=== PATIENT | male | born 1940 | race Caucasian/White ===

== ENCOUNTER 2022-05-25 11:52 | Emergency (ER) | payer MEDICARE ==
[~2022-05-25] VITALS: Ht 180.3 cm; Wt 90.7 kg
[2022-05-25] MEDS ORDERED: LACTATED RINGERS 1000ML 1,000 ML IV ONE (12:30)
[2022-05-25 12:39] LABS: BASOPHILS % (AUTO) 0.2 % (0.0-5.0); EOSINOPHILS % (AUTO) 0.7 % (0.0-8.0); HEMATOCRIT 36.1 % (42-54); LYMPHOCYTES % (AUTO) 46.2 % (21.0-51.0); MEAN CORPUSCULAR HEMOGLOBIN 28.3 pg (27.0-33.0); MEAN CORPUSCULAR HGB CONC 32.1 g/dL (32.0-36.0); MONOCYTES % (AUTO) 8.8 % (3.0-13.0); NEUTROPHILS % (AUTO) 43.7 % (40.0-77.0); PLATELET COUNT (AUTO) 169 K/uL (130-400); RED CELL DISTRIBUTION WIDTH 14.2 % (11.0-15.5); WHITE BLOOD COUNT (AUTO) 16.3 K/uL (4.8-10.8)
[2022-05-25 12:44] LABS: INR 0.95 (0.85-1.15); PROTHROMBIN TIME 10.4 SEC (9.6-11.6)
[2022-05-25 12:45] LABS: CREATININE 1.3 mg/dL (0.5-1.5); POTASSIUM 3.2 mmol/L (3.5-5.1)
[2022-05-25 12:46] LABS: PARTIAL THROMBOPLASTIN TIME 24.9 SEC (26.3-35.5)
[2022-05-25 12:49] LABS: ALBUMIN 3.7 g/dL (3.5-5.0); TOTAL PROTEIN, SERUM 7.2 g/dL (6.0-8.3)
[2022-05-25 13:14] LABS: MAGNESIUM 1.9 mg/dL (1.80-2.40)
== END 2022-05-25 15:30 | disposition left against medical advice (07) ==
LOC: EDH 11:52
DX: R55 Syncope and collapse (principal); D72.829 Elevated white blood cell count, unspecified; E87.6 Hypokalemia; I10 Essential (primary) hypertension; E78.00 Pure hypercholesterolemia, unspecified; Z85.118 Personal history of other malignant neoplasm of bronchus and lung; Z85.841 Personal history of malignant neoplasm of brain; Z91.012 Allergy to eggs
CPT/HCPCS: 99285; 96360; 70450; 71045; 80061; 82550; 83735; 83874; 84484; 80053; 83880; 85025; 85378; 85610; 85730; 36415; 93005; J7120

== ENCOUNTER 2022-06-29 16:14 | Observation (INO) | payer MEDICARE ==
[~2022-06-29] VITALS: Ht 180.3 cm; Wt 90.7 kg
[2022-06-29 16:40] LABS: BASOPHILS % (AUTO) 0.2 % (0.0-5.0); EOSINOPHILS % (AUTO) 0.9 % (0.0-8.0); HEMATOCRIT 33.7 % (42-54); LYMPHOCYTES % (AUTO) 61.6 % (21.0-51.0); MEAN CORPUSCULAR HEMOGLOBIN 28.1 pg (27.0-33.0); MEAN CORPUSCULAR HGB CONC 31.8 g/dL (32.0-36.0); MEAN CORPUSCULAR VOLUME 88.5 fL (79-99); NEUTROPHILS % (AUTO) 29.9 % (40.0-77.0); PLATELET COUNT (AUTO) 111 K/uL (130-400); RED BLOOD CELL COUNT(AUTO) 3.81 MIL/uL (4.50-6.20); RED CELL DISTRIBUTION WIDTH 13.5 % (11.0-15.5); WHITE BLOOD COUNT (AUTO) 18.2 K/uL (4.8-10.8)
[2022-06-29 16:54] LABS: CREATININE 1.7 mg/dL (0.5-1.5); POTASSIUM 3.9 mmol/L (3.5-5.1)
[2022-06-29 17:01] LABS: ALBUMIN 3.2 g/dL (3.5-5.0); MAGNESIUM 1.8 mg/dL (1.80-2.40); TOTAL PROTEIN, SERUM 6.6 g/dL (6.0-8.3)
[2022-06-29 17:17] LABS: B-TYPE NATRIURETIC PEPTIDE 98 pg/mL (0-100)
[2022-06-29] MEDS ORDERED: PANTOPRAZOLE 40 MG/VIAL IVP STA (17:49)
[2022-06-29] MEDS ORDERED: LIDOCAINE HCL 2% VISCOUS 15 ML UDCUP PO ONE (19:00)
[2022-06-29] MEDS ORDERED: MAG/ALUM/SIMETH 30 ML UDCUP PO ONE (19:00)
[2022-06-29] MEDS: NITROGLYCERIN 0.4 MG SL TAB SL PRN ×2 (20:34→21:24)
[2022-06-29] MEDS ORDERED: DOCUSATE SODIUM 100 MG CAP PO PRN (21:30)
[2022-06-29] MEDS ORDERED: ALBUTEROL 0.083% 2.5 MG/3 ML INH IH PRN (21:30)
[2022-06-29] MEDS ORDERED: CLONIDINE HCL 0.1 MG TABLET PO PRN (21:30)
[2022-06-29] MEDS ORDERED: LACTULOSE 20 GM/30 ML UDCUP PO PRN (21:30)
[2022-06-29] MEDS ORDERED: ACETAMINOPHEN 325 MG TAB PO PRN (21:30)
[2022-06-29] MEDS ORDERED: HYDRALAZINE 20MG/ML VIAL IV PRN (21:30)
[2022-06-29] MEDS ORDERED: ONDANSETRON 4MG INJ IVP PRN (21:30)
[2022-06-29 21:55] LABS: ABG HCO3 23.9 mmol/L (21.0-28.0); ABG OXYGEN SATURATION 93.5 % (95.0-99.0); ABG PCO2 41 mmHg (35-48)
[2022-06-29] MEDS ORDERED: PROP60TA20 PO (21:58)
[2022-06-29] MEDS ORDERED: DOXA2TAB2 PO (21:58)
[2022-06-29] MEDS ORDERED: HYDR25TA PO (21:58)
[2022-06-29] MEDS ORDERED: METF-444 PO (21:58)
[2022-06-29] MEDS ORDERED: ATOR-2 PO (21:58)
[2022-06-29] MEDS ORDERED: LOSA100T58 PO (21:58)
[2022-06-29] MEDS ORDERED: ALLO100T PO (21:58)
[2022-06-29] MEDS ORDERED: MORPHINE 2 MG SYG IVP ONE (22:30)
[2022-06-30 02:32] VITALS: BP 159/65
[2022-06-30] MEDS ORDERED: DOXA4TAB3 PO (03:27)
[2022-06-30] MEDS ORDERED: ALLO100T PO (03:29)
[2022-06-30] MEDS ORDERED: [UNRECOGNIZED DRUG - OTHER] PO (03:33)
[2022-06-30 05:01] VITALS: BP 159/58
[2022-06-30 07:12] LABS: BASOPHILS % (AUTO) 0.2 % (0.0-5.0); EOSINOPHILS % (AUTO) 0.1 % (0.0-8.0); HEMATOCRIT 33.5 % (42-54); LYMPHOCYTES % (AUTO) 45.6 % (21.0-51.0); MEAN CORPUSCULAR HEMOGLOBIN 28.2 pg (27.0-33.0); MEAN CORPUSCULAR HGB CONC 32.8 g/dL (32.0-36.0); MEAN CORPUSCULAR VOLUME 85.9 fL (79-99); MONOCYTES % (AUTO) 6.9 % (3.0-13.0); NEUTROPHILS % (AUTO) 46.8 % (40.0-77.0); PLATELET COUNT (AUTO) 123 K/uL (130-400); RED CELL DISTRIBUTION WIDTH 13.4 % (11.0-15.5); WHITE BLOOD COUNT (AUTO) 18.6 K/uL (4.8-10.8)
[2022-06-30 07:33] LABS: CREATININE 1.5 mg/dL (0.5-1.5); MAGNESIUM 1.9 mg/dL (1.80-2.40); PHOSPHORUS 3.5 mg/dL (2.5-4.9); POTASSIUM 3.7 mmol/L (3.5-5.1); THYROID STIMULATING HORMONE 2.29 uIU/mL (0.36-3.74)
[2022-06-30 08:00] VITALS: BP 146/67
[2022-06-30] MEDS ORDERED: ENOXAPARIN SODIUM 40 MG/0.4 ML SYRINGE SQ SCH (09:00)
[2022-06-30 11:38] VITALS: BP 135/46
== END 2022-06-30 16:59 | disposition home or self-care (01) ==
LOC: EDH 16:14 → EDHIP 21:11 → 4CH 06-30 00:56
PROVIDERS: ADMIT Internal Medicine Critical Care Medicine; ATTEND Internal Medicine Critical Care Medicine
DX: R07.89 Other chest pain (principal); R06.00 Dyspnea, unspecified; R79.89 Other specified abnormal findings of blood chemistry; N17.9 Acute kidney failure, unspecified; I12.9 Hypertensive chronic kidney disease with stage 1 through stage 4 chronic kidney disease, or unspecified chronic kidney disease; E11.22 Type 2 diabetes mellitus with diabetic chronic kidney disease; N18.30 Chronic kidney disease, stage 3 unspecified; E78.5 Hyperlipidemia, unspecified; M10.9 Gout, unspecified; E78.00 Pure hypercholesterolemia, unspecified; C91.10 Chronic lymphocytic leukemia of B-cell type not having achieved remission; I44.0 Atrioventricular block, first degree; Z85.118 Personal history of other malignant neoplasm of bronchus and lung; Z85.841 Personal history of malignant neoplasm of brain; Z79.899 Other long term (current) drug therapy
CPT/HCPCS: 96374; 96375; 99285; 83735 ×2; 84484 ×4; 80053; 82803; 83880; 85025 ×2; 85378; 83605; 36415 ×2; 71045; 78582; 93005; 36600; 94664; 84145; 96372; 84443; 82550 ×2; 84100; 83874 ×2; 80048; 82948 ×2; G0378 ×18; C9113; A9540; A9558; J1650

== ENCOUNTER → 2022-07-15 | Outpatient (CLI) | payer MEDICARE ==
[~2022-07-15] MED LIST: ALLO100T PO; ATOR-2 PO; DOXA4TAB3 PO; HYDR25TA PO; LOSA100T58 PO; PROP60TA20 PO; [UNRECOGNIZED DRUG - OTHER] PO
== END | disposition home or self-care (01) ==
LOC: LAB 11:15
PROVIDERS: ATTEND Physician Assistant
DX: C34.12 Malignant neoplasm of upper lobe, left bronchus or lung (principal); R00.1 Bradycardia, unspecified; I44.0 Atrioventricular block, first degree
CPT/HCPCS: 93005

== ENCOUNTER → 2022-07-21 | Outpatient (CLI) | payer MEDICARE | END | disposition home or self-care (01) | LOC: LAB 09:13 | PROVIDERS: ATTEND Physician Assistant | DX: R00.1 Bradycardia, unspecified (principal); I48.91 Unspecified atrial fibrillation; C34.12 Malignant neoplasm of upper lobe, left bronchus or lung | CPT/HCPCS: 93005 ==

== ENCOUNTER → 2022-08-05 | Outpatient (CLI) | payer MEDICARE | END | disposition home or self-care (01) | LOC: LAB 09:14 | PROVIDERS: ATTEND Physician Assistant | DX: R00.1 Bradycardia, unspecified (principal); I10 Essential (primary) hypertension; C34.12 Malignant neoplasm of upper lobe, left bronchus or lung | CPT/HCPCS: 93005 ==

== ENCOUNTER → 2022-08-26 | Outpatient (CLI) | payer MEDICARE | END | disposition home or self-care (01) | LOC: LAB 10:19 | PROVIDERS: ATTEND Physician Assistant | DX: I44.0 Atrioventricular block, first degree (principal); C34.12 Malignant neoplasm of upper lobe, left bronchus or lung | CPT/HCPCS: 93005 ==

== ENCOUNTER → 2022-09-09 | Outpatient (CLI) | payer MEDICARE | END | disposition home or self-care (01) | LOC: LAB 09:08 | PROVIDERS: ATTEND Physician Assistant | DX: I44.0 Atrioventricular block, first degree (principal) | CPT/HCPCS: 93005 ==

== ENCOUNTER → 2022-09-23 | Outpatient (CLI) | payer MEDICARE | END | disposition home or self-care (01) | LOC: LAB 08:44 | PROVIDERS: ATTEND Physician Assistant | DX: I49.3 Ventricular premature depolarization (principal); I49.1 Atrial premature depolarization; I44.0 Atrioventricular block, first degree | CPT/HCPCS: 93005 ==

== ENCOUNTER → 2022-11-15 | Outpatient (CLI) | payer MEDICARE ==
[~2022-11-15] MED LIST changes: -LOSA100T58 PO; +LOSA100T59 PO
== END | disposition home or self-care (01) ==
LOC: LAB 07:38
PROVIDERS: ATTEND Physician Assistant
DX: C34.12 Malignant neoplasm of upper lobe, left bronchus or lung (principal)
CPT/HCPCS: 93005

== ENCOUNTER 2023-12-05 13:41 | Emergency (ER) | payer MEDICARE ==
[~2023-12-05] VITALS: Ht 182.9 cm; Wt 95.3 kg
[~2023-12-05 13:41] MED LIST changes: +AEC81 PO; +AMOX-426 PO; -ATOR-2 PO; +ATOR40TA71 PO; +DEXA6TAB PO; +DOXA2TAB2 PO; -DOXA4TAB3 PO; +DOXY100C5 PO; +EZET10TA48 PO; +IPRNEB IH; +PROP60CA2 PO; -PROP60TA20 PO; +[UNRECOGNIZED DRUG - CODE] PO
[2023-12-05 14:51] LABS: BASOPHILS # (AUTO) 0.06 K/uL (0.00-0.20); BASOPHILS % (AUTO) 0.3 % (0.0-5.0); EOSINOPHILS # (AUTO) 0.17 K/uL (0.00-0.70); EOSINOPHILS % (AUTO) 0.9 % (0.0-8.0); HEMATOCRIT 39.5 % (42-54); IMMATURE GRANULOCYTE ABSOLUTE 0.09 K/uL (0-1); LYMPHOCYTES # (AUTO) 8.5 K/uL (1.0-4.8); LYMPHOCYTES % (AUTO) 46.1 % (21.0-51.0); MEAN CORPUSCULAR HEMOGLOBIN 27.2 pg (27.0-33.0); MEAN CORPUSCULAR HGB CONC 30.9 g/dL (32.0-36.0); MEAN CORPUSCULAR VOLUME 88.2 fL (79-99); MONOCYTES # (AUTO) 0.9 K/uL (0.1-1.0); MONOCYTES % (AUTO) 4.7 % (3.0-13.0); NEUTROPHILS # (AUTO) 8.7 K/uL (1.8-7.7); NEUTROPHILS % (AUTO) 47.5 % (40.0-77.0); PLATELET COUNT (AUTO) 192 K/uL (130-400); RED BLOOD CELL COUNT(AUTO) 4.48 MIL/uL (4.50-6.20); RED CELL DISTRIBUTION WIDTH 14.6 % (11.0-15.5); WHITE BLOOD COUNT (AUTO) 18.3 K/uL (4.8-10.8)
[2023-12-05 15:01] LABS: CREATININE 1.2 mg/dL (0.5-1.3); POTASSIUM 4.4 mmol/L (3.5-5.1)
[2023-12-05 15:06] LABS: ALBUMIN 3.4 g/dL (3.5-5.0); BILIRUBIN,TOTAL 0.4 mg/dL (0.2-1.0); TOTAL PROTEIN, SERUM 7.6 g/dL (6.0-8.3)
[2023-12-05 15:19] LABS: BAND NEUTROPHILS % (MANUAL) 3 % (0-2); LYMPHOCYTES % (MANUAL) 60 % (22-44); SEGMENTED NEUTROPHILS % 37 % (40-70); TOTAL CELLS COUNTED 100
[2023-12-05 15:20] LABS: MAN.DIFF COMMENT-IMPRESSION MANUAL DIFFERENTIAL; PLATELET MORPHOLOGY COMMENT ADEQUATE; WBC MORPHOLOGY CONSISTENT W/DIFF
[2023-12-05 17:20] LABS: APPEARANCE,URINE CLEAR (CLEAR); BILIRUBIN,URINE NEGATIVE (NEGATIVE); COLOR,URINE LIGHT-YELLOW (YELLOW); GLUCOSE, URINE (UA) NEGATIVE (NEGATIVE); KETONES,URINE NEGATIVE (NEGATIVE); LEUKOCYTE ESTERASE ,URINE NEGATIVE Leu/uL (NEGATIVE); NITRATE,URINE NEGATIVE (NEGATIVE); OCCULT BLOOD,URINE NEGATIVE (NEGATIVE); PH,URINE 6.5 (5.0-8.0); PROTEIN,URINE 30 mg/dL (NEGATIVE); UROBILINOGEN,URINE 0.2 mg/dL (0.2-1.0)
[2023-12-05 17:25] LABS: ADD UA MICROSCOPIC YES
[2023-12-05 17:27] LABS: BACTERIA,URINE RARE /HPF (None Seen); SQUAMOUS EPITHELIAL CELL,UR RARE /HPF (0-2); WBC,URINE 0-1 /HPF (0-1)
[2023-12-05] MEDS ORDERED: IOHEXOL-350 75 ML VIAL IV ONE (17:57)
[2023-12-05] MEDS: 0.9%NACL 1000ML 1,000 ML IV SCH (18:38)
[2023-12-05] MEDS: CEFTRIAXONE 2GM VIAL IVPB ONE (18:38)
[2023-12-05] MEDS ORDERED: LEVO750T68 PO (19:09)
[2023-12-05 19:36] VITALS: BP 155/78; PULSE 62; RESP 16; O2SAT 97
== END 2023-12-05 19:47 | disposition home or self-care (01) ==
LOC: EDH 13:41
DX: R55 Syncope and collapse (principal); D72.89 Other specified disorders of white blood cells; E86.0 Dehydration; J18.9 Pneumonia, unspecified organism; E11.9 Type 2 diabetes mellitus without complications; E78.00 Pure hypercholesterolemia, unspecified; I10 Essential (primary) hypertension; C34.90 Malignant neoplasm of unspecified part of unspecified bronchus or lung; C79.31 Secondary malignant neoplasm of brain; Z91.012 Allergy to eggs; Z79.899 Other long term (current) drug therapy; Z79.2 Long term (current) use of antibiotics; Z79.82 Long term (current) use of aspirin
CPT/HCPCS: 99285; 70450; 96365; 71045; 83735; 84484; 80053; 85025; 82948; 81001; 36415; 71260; 93005; J7030; J0696 ×2; Q9967

== ENCOUNTER → 2024-04-02 | Outpatient (CLI) | payer MEDICARE ==
[~2024-04-02] MED LIST changes: +LEVO750T68 PO
[2024-04-02 08:31] LABS: CHOLESTEROL 182 mg/dL (<200); HDL CHOLESTEROL 52 mg/dL (29-71); HEMOGLOBIN A1C 6.7 % (4.0-6.0); LDL DIRECT 103 mg/dL (0-99); TRIGLYCERIDES 126 mg/dL (30-200)
--- NOTE | 2024-04-02 08:36 | EKG ---
[facility] Test Date: 2024-04-02 Test Time: 09:01:23 Pat Name: MICHAEL ÁLVAREZ Department: LAB Room: Gender: Male [employer]ather: [id number] : 1940 Requested By: JACK MOORE Order Number: [id number] Reading MD: Measurements Intervals [place] Rate: 80 P: 0 TN: 0 QRS: 69 QRSD: 93 T: 43 QT: 400 QTc: 463 Interpretive Statements Atrial fibrillation Probable anteroseptal infarct, old No previous ECG available for comparison Please click the below link to view image of tracing.
== END | disposition home or self-care (01) ==
LOC: LAB 07:30
PROVIDERS: ATTEND Nurse Practitioner Family
DX: C34.12 Malignant neoplasm of upper lobe, left bronchus or lung (principal); I48.91 Unspecified atrial fibrillation; Z79.899 Other long term (current) drug therapy
CPT/HCPCS: 36415; 80061; 83036; 93005

== ENCOUNTER → 2024-07-04 | Outpatient (CLI) | payer MEDICARE ==
[~2024-07-04] MED LIST changes: +IOHEXOL 350 MG/ML 100ML INFUS..BTL IV ONE
--- NOTE | 2024-07-04 11:15 | HMCIMG ---
CT CHEST/ABD/PELV W/CONRAST HISTORY: Lung cancer COMPARISON: 12/05/2023 TECHNIQUE: Multiple sequential axial images of the chest were obtained from the thoracic inlet through upper abdomen. Patient was given 100 cc of Omnipaque through intravenous route. FINDINGS: Lung scarring with calcified granuloma are again seen in the left upper lobe. There are interstitial fibrosis. Bibasilar linear atelectasis calcified granuloma are seen. Small bilateral pleural effusions are seen. No pleural effusion or pericardial effusion is seen. There is no evidence of pneumothorax. There are normal size mediastinal and hilar lymph nodes. The heart is not enlarged. Degenerative changes of the thoracolumbar spine are present. There is no evidence of adrenal nodule. Coronary arterial calcifications are seen. IMPRESSION: 1. Left upper lobe nodular density with calcified granuloma unchanged consistent with lung scarring. Tiny bilateral pleural effusions are seen. CT CHEST/ABD/PELV W/CONRAST HISTORY: Malignant neoplasm of the upper lobe COMPARISON: None TECHNIQUE: Multiple sequential axial images of the abdomen and pelvis were obtained from the dome of the diaphragm through symphysis pubis. Patient was given 100 cc of Omnipaque through intravenous route. Oral contrast was given. FINDINGS: Liver measures 17.3 cm. The liver, spleen, adrenal glands and pancreas are unremarkable. There is no evidence of hydronephrosis bilaterally. No evidence of renal stone is seen. Fecal material is seen in the colon. There are normal size retroperitoneal and mesenteric lymph nodes. No ascites is seen. Atherosclerotic changes are present. Pelvic sidewalls are symmetric bilaterally. Bladder is well distended without wall thickening. IMPRESSION: 1. Bladder renal cortical scarring. No ascites. No acute findings. CT was performed with one or more following dose reduction techniques: automated exposure control, adjustment of the mA and kv according to patient's size, or use of a iterative reconstruction technique.
== END | disposition home or self-care (01) ==
LOC: RAH 08:07
PROVIDERS: ATTEND Nurse Practitioner Family
DX: C34.12 Malignant neoplasm of upper lobe, left bronchus or lung (principal); R91.1 Solitary pulmonary nodule; J90 Pleural effusion, not elsewhere classified; J84.10 Pulmonary fibrosis, unspecified; J98.11 Atelectasis; M47.815 Spondylosis without myelopathy or radiculopathy, thoracolumbar region; J98.4 Other disorders of lung; I25.10 Atherosclerotic heart disease of native coronary artery without angina pectoris
CPT/HCPCS: 71260; 74177; Q9967

== ENCOUNTER → 2025-02-12 | Outpatient (CLI) | payer MEDICARE ==
[~2025-02-12] MED LIST changes: -EZET10TA48 PO; +EZET10TA80 PO; -IOHEXOL 350 MG/ML 100ML INFUS..BTL IV ONE
--- NOTE | 2025-02-15 06:53 | HMCIMG ---
EXAM: US Duplex bilateral Lower Extremity Arteries. 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 COMPARISON: None provided. FINDINGS: Multilevel atherosclerotic changes in bilateral lower limb arteries. Right Leg: PAUNCH TRIMMER (Common Femoral Artery): PSV 117 cm/s, triphasic waveform SFA (Superficial Femoral Artery): Proximal PSV 108 cm/s, triphasic waveform Mid PSV 94 cm/s, triphasic waveform Distal PSV 101 cm/s, triphasic waveform Popliteal Artery: Proximal PSV 127 cm/s, triphasic waveform Distal PSV 73 cm/s, triphasic waveform Posterior Tibial Artery (MORTGAGE MANAGER): PSV 87 cm/s, monophasic waveform Anterior Tibial Artery (AMANDA): PSV 122 cm/s, monophasic waveform Dorsalis Pedis Artery (DPA): PSV 46.2 cm/s, monophasic waveform Left Leg: PAUNCH TRIMMER (Common Femoral Artery): PSV 90 cm/s, triphasic waveform SFA (Superficial Femoral Artery): Proximal PSV 124 cm/s, triphasic waveform Mid PSV 76 cm/s, triphasic waveform Distal PSV 96 cm/s, triphasic waveform Popliteal Artery: Proximal PSV 181 cm/s, triphasic waveform. 20 to 49 % stenosis. Distal PSV 98 cm/s, triphasic waveform Posterior Tibial Artery (MORTGAGE MANAGER): PSV 130 cm/s, triphasic waveform Anterior Tibial Artery (AMANDA): PSV 90 cm/s, monophasic waveform Dorsalis Pedis Artery (DPA): PSV 58 cm/s, monophasic waveform IMPRESSION: 1. Multilevel atherosclerotic changes in bilateral lower extremity arteries, including 20-49% stenosis in the proximal left popliteal artery. 2. Monophasic waveforms in bilateral anterior tibial and dorsalis pedis arteries, and right posterior tibial artery, suggestive of peripheral arterial disease. /[place]
== END | disposition home or self-care (01) ==
LOC: RAH 12:48
PROVIDERS: ATTEND Family Medicine
DX: I70.213 Atherosclerosis of native arteries of extremities with intermittent claudication, bilateral legs (principal)
CPT/HCPCS: 93925